=== PATIENT | male | born 1995 | race American Indian/Alaskan Native ===

== ENCOUNTER 2017-06-22 21:36 | Emergency (ER) | payer SELFPAY ==
[2017-06-22 21:36] VITALS: BMI 39.5
[2017-06-22 23:01] VITALS: BP 123/81; PULSE 78; RESP 18; TEMP 100; O2SAT 96
== END 2017-06-23 00:05 | disposition left against medical advice (07) ==
LOC: ED 21:36
DX: Z02.89 Encounter for other administrative examinations (principal); J11.1 Influenza due to unidentified influenza virus with other respiratory manifestations